=== PATIENT | female | born 1995 | race African-American/Black ===

== ENCOUNTER 2018-05-21 03:43 | Emergency (ER) | payer MEDICAID ==
[~2018-05-21] VITALS: Ht 154.9 cm; Wt 57.0 kg
[2018-05-21 06:41] LABS: BASOPHILS % 0.7 % (0.0-2.0); EOSINOPHILS % 1.5 % (0.0-5.0); HEMATOCRIT. 40.1 % (36.0-48.0); HEMOGLOBIN. 13.6 g/dL (12.0-16.0); MEAN CORPUSCULAR HEMOGLOBIN 31.2 pg (28.0-32.0); MEAN PLATELET VOLUME 8.2 fl (7.4-10.4); MONOCYTES % 7.4 % (2.0-8.0); NEUTROPHILS % 57.4 % (40.0-76.0); PLATELET 263 x1000/uL (130-400); RED BLOOD CELL COUNT 4.36 mill/uL (4.2-5.4); RED CELL DISTRIBUTION WIDTH 13.5 % (11.6-14.6)
[2018-05-21 06:46] LABS: CHLORIDE 104 mEq/L (98-107)
[2018-05-21 06:47] LABS: PROTHROMBIN TIME 10.8 sec (9.4-11.6)
[2018-05-21] MEDS ORDERED: IBUPROFEN 600MG TABLET PO ONE (08:45)
[2018-05-21 09:12] VITALS: BP 100/65
== END 2018-05-21 09:17 | disposition home or self-care (01) ==
LOC: ER 03:43
DX: R07.89 Other chest pain (principal); F17.200 Nicotine dependence, unspecified, uncomplicated; Z98.82 Breast implant status
CPT/HCPCS: 36415; 71045; 80053; 81025; 85025; 85610; 93005; 99285